=== PATIENT | female | born 1970 | race Caucasian/White ===

== ENCOUNTER → 2025-07-18 13:41 | Outpatient (REF) | payer MEDICARE, OTHER, SELFPAY | LOC: RAD 13:41 | PROVIDERS: ATTENDING PHYSICIAN Specialist; FAMILY PHYSICIAN Family Medicine | DX: M25.512 Pain in left shoulder (principal) | CPT/HCPCS: 73030 ==

== ENCOUNTER → 2025-09-05 12:59 | Outpatient (REF) | payer MEDICARE, OTHER, SELFPAY | LOC: WDC 12:59 | PROVIDERS: ATTENDING PHYSICIAN Physician Assistant Medical; FAMILY PHYSICIAN Family Medicine | DX: F17.210 Nicotine dependence, cigarettes, uncomplicated (principal); H04.123 Dry eye syndrome of bilateral lacrimal glands; I73.00 Raynaud's syndrome without gangrene; M25.50 Pain in unspecified joint; M51.27 Other intervertebral disc displacement, lumbosacral region; M54.50 Low back pain, unspecified; M79.89 Other specified soft tissue disorders; R71.8 Other abnormality of red blood cells; R76.89 Other specified abnormal immunological findings in serum; R89.9 Unspecified abnormal finding in specimens from other organs, systems and tissues; Z81.2 Family history of tobacco abuse and dependence | CPT/HCPCS: 73120; 77063; 77067 ==

== ENCOUNTER → 2025-09-11 14:38 | Outpatient (REF) | payer MEDICARE, OTHER, SELFPAY | LOC: HWRAD 14:38 | PROVIDERS: ATTENDING PHYSICIAN Student in an Organized Health Care Education/Training Program; FAMILY PHYSICIAN Family Medicine | DX: F17.210 Nicotine dependence, cigarettes, uncomplicated (principal); G89.29 Other chronic pain; I73.00 Raynaud's syndrome without gangrene; M51.27 Other intervertebral disc displacement, lumbosacral region; M54.50 Low back pain, unspecified; R76.89 Other specified abnormal immunological findings in serum | CPT/HCPCS: 71250 ==

== ENCOUNTER → 2025-09-20 09:03 | Outpatient (REF) | payer MEDICARE, OTHER, SELFPAY | LOC: WDC 09:03 | PROVIDERS: ATTENDING PHYSICIAN Physician Assistant Medical; FAMILY PHYSICIAN Family Medicine | DX: R92.8 Other abnormal and inconclusive findings on diagnostic imaging of breast (principal) | CPT/HCPCS: 76642 ==